=== PATIENT | female | born 1950 | race Caucasian/White ===

== ENCOUNTER 2020-02-07 16:51 | Inpatient (IN) | payer MEDICARE ==
[~2020-02-07] VITALS: Ht 170.2 cm; Wt 104.8 kg
[~2020-02-07 16:51] MED LIST: CALCIT950 PO; Dialyvite 5000 T5 MG PO; ENOX40I SC; FERR325 PO; GLUC500 PO; HYDMOR2 PO; LEVO750 PO; LISI20 PO; NEPHROCAPS QT1 EACH PO; OSTERA TABLET1 EACH PO; OXYACE5T PO; SIMV10 PO; TOPI25 PO; [UNRECOGNIZED DRUG - OTHER] PO
[2020-02-07] MEDS ORDERED: Ventolin/Prove6.7 GM INH (17:02)
[2020-02-07] MEDS ORDERED: CODEINE-GUAIFE120 ML PO (17:02)
[2020-02-07 17:53] LABS: BASOPHILS ABSOLUTE AUTO 0.06 K/mm3 (0.00-0.23); BASOPHILS PERCENT AUTO 1 % (0-2); EOSINOPHILS ABSOLUTE AUTO 0.15 K/mm3 (0.00-0.68); EOSINOPHILS PERCENT AUTO 1 % (0-6); Hematocrit 34.9 % (33.0-51.0); Hemoglobin 11.3 g/dL (11.5-16.0); IMMATURE GRAN ABSOLUTE AUTO 0.04 K/mm3 (0.00-0.10); IMMATURE GRAN PERCENT AUTO 0 % (0-1); LYMPHOCYTES ABSOLUTE AUTO 1.09 K/mm3 (0.84-5.20); LYMPHOCYTES PERCENT AUTO 9 % (21-46); MONOCYTES PERCENT AUTO 10 % (4-13); Mean Corpuscular HGB 29.7 pg (26.0-34.0); Mean Corpuscular HGB Conc 32.4 g/dL (31.5-36.5); Mean Corpuscular Volume 92 fL (80-100); Mean Platelet Volume 9.3 fL (9.1-12.4); NEUTROPHILS ABSOLUTE AUTO 9.09 K/mm3 (1.96-9.15); NEUTROPHILS PERCENT AUTO 78 % (41-73); Platelet Count 451 K/mm3 (150-400); RDW Coefficient Variation 12.7 % (11.7-14.2); RDW Standard Deviation 42.9 fL (35.1-46.3); Red Blood Cell Count 3.81 M/mm3 (3.80-5.20); White Blood Cell Count 11.63 K/mm3 (4.00-11.30)
[2020-02-07 18:18] LABS: Anion Gap 4 mmol/L (6-16); Blood Urea Nitrogen 17 mg/dL (8-24); Bun/Creatinine Ratio 30.5 (12.0-20.0); CO2, Blood 28 mmol/L (21-32); Calcium, Blood 9.3 mg/dL (8.5-10.1); Chloride, Blood 106 mmol/L (98-108); Creatinine, Blood 0.56 mg/dL (0.40-1.00); Glomerular Filtration Rate >60 (60-); Glucose, Blood 123 mg/dL (70-99); Potassium, Blood 4.1 mmol/L (3.5-5.5); Sodium, Blood 138 mmol/L (136-145); Troponin I <0.015 ng/mL (0.000-0.040)
--- NOTE | 2020-02-08 | NUR ---
PATIENT IS A NEW ADMIT FROM THE ED. AXOX 4 AND SELF TRANSFER FROM [facility] TO BED. ON ROOM AIR. REPORTS CHEST/RIB/BACK PAIN FROM BREATHING EXERTION. PATIENT ORIENTED TO ROOM AND CALL LIGHT SYSTEM. TELEMETRY IN PLACE AND TECH REPORTS ST 103. LASIX 60 MG GIVEN PER EMAR. CALL LIGHT IN REACH. BED IN LOWEST POSITION. WILL CONTINUE TO MONITOR.
--- NOTE | 2020-02-08 00:04 | NUR ---
PATIENT REPORTS CHEST/RIB/BACK PAIN. HOSPITALIST DR BLAND NOTIFIED AND ORDERED IV FENTANYL 25 MCG Q4 PRN.
--- NOTE | 2020-02-08 01:56 | NUR ---
PCU MONITOR TOBI POLLACK REPORTS ST 118-122. PATIENT UP TO BATHROOM DURING EVENT ON LASIX. CALL LIGHT IN REACH.
[2020-02-08 02:23] LABS: Hematocrit 33.2 % (33.0-51.0); Hemoglobin 10.6 g/dL (11.5-16.0); Mean Corpuscular HGB 29.1 pg (26.0-34.0); Mean Corpuscular HGB Conc 31.9 g/dL (31.5-36.5); Mean Corpuscular Volume 91 fL (80-100); Mean Platelet Volume 9.3 fL (9.1-12.4); Platelet Count 426 K/mm3 (150-400); RDW Coefficient Variation 12.9 % (11.7-14.2); RDW Standard Deviation 42.5 fL (35.1-46.3); Red Blood Cell Count 3.64 M/mm3 (3.80-5.20); White Blood Cell Count 14.17 K/mm3 (4.00-11.30)
[2020-02-08 02:44] LABS: Alanine Aminotransfer (ALT/SGP 19 U/L (12-78); Albumin, Blood 2.9 g/dL (3.4-5.0); Albumin/Globulin Ratio 0.6 (0.8-1.8); Alk Phos 99 U/L (50-136); Anion Gap 7 mmol/L (6-16); Aspartate Aminotrans (AST/SGOT 16 U/L (12-37); Bilirubin, Total 0.4 mg/dL (0.1-1.0); Blood Urea Nitrogen 15 mg/dL (8-24); Bun/Creatinine Ratio 19.9 (12.0-20.0); CO2, Blood 28 mmol/L (21-32); CPK Creatine Kinase 18 U/L (26-193); Calcium, Blood 9.1 mg/dL (8.5-10.1); Chloride, Blood 102 mmol/L (98-108); Creatinine, Blood 0.75 mg/dL (0.40-1.00); Globulin, Blood 4.9 g/dL (2.2-4.0); Glomerular Filtration Rate >60 (60-); Glucose, Blood 137 mg/dL (70-99); Potassium, Blood 3.9 mmol/L (3.5-5.5); Sodium, Blood 137 mmol/L (136-145); Total Protein, Blood 7.8 g/dL (6.4-8.2); Troponin I <0.015 ng/mL (0.000-0.040)
--- NOTE | 2020-02-08 04:20 | NUR ---
SHIFT SUMMARY PATIENT HR RATE INCREASED TO ST 118-122 WHEN UP TO BR FROM ST 103 X ONE PER TELEMETRY. AXOX 4 AND SBA TO BR. IV LASIX GIVEN ON ADMIT. PIV REMAINS INTACT. REPORTED CHEST/RIB/BACK PAIN AND RECEIVED IV FENTANYL 25 MCG PER EMAR PRN. ON ROOM AIR. RT IN TO CHECK O2 STATS AND LUNG SOUNDS. NO BREATHING TX AT THIS TIME REPORTED. SOB W/EXERTION. VSS/AFEBRILE. COOPERATIVE WITH CARE. CALL LIGHT IN REACH. BED IN LOWEST POSITION. WILL CONTINUE TO MONITOR UNTIL DAY SHIFT NURSE ASSUMES CARE.
[2020-02-08 10:50] LABS: CPK Creatine Kinase 24 U/L (26-193); Troponin I <0.015 ng/mL (0.000-0.040)
--- NOTE | 2020-02-08 11:24 | NUR ---
ECHOCARDIOGRAM COMPLETED
--- NOTE | 2020-02-08 14:11 | NUR ---
IV LOCATED LAC
--- NOTE | 2020-02-08 20:23 | NUR ---
SUMMARY- PT ALERT AND ORIENTED. INDEPENDANT IN ROOM, GETS UP TO BATHROOM, CONTINENT OF B&B. LUNGS CLEAR WITH FAINT CRACKLES IN BASES. STATES SHE FEELS PAIN IN [place] WITH DEEP BREATHING. MEDICATED Q4 WITH FENTANY. NO LASIX GIVEN THIS AM BECAUSE FIRST DOSE WAS LAST NIGHT AND SCHEDULED NEXT 02/[address] DENG, IN CASE AN ADDITIONAL DOSE WANTED IN BETWEEN SCHEDULED. ALSO NOTIFIED DR THAT FENT IS SHORT LIVED FOR PAIN CONTROL AND PT STATES TYLENOL WONT HELP BUT REQ FOR AN INBETWEEN FOR PAIN CONTROL. REPORTED TO GERSON MELO RN.
--- NOTE | 2020-02-09 04:05 | NUR ---
SHIFT SUMMARY PATIENT HAD NO ACUTE CHANGES OBSERVED. AXOX 4 AND INDEPENDENT IN THE ROOM. PIV REMAINS INTACT. BUS BOY REPORTS ST 102. VSS/AFEBRILE. DENIES SOB AND N/V. REPORTED CHEST/RIB PAIN AND NORCO GIVEN PER EMAR. PATIENT ABLE TO GO BACK TO SLEEP WITH PAIN MANAGEMENT. COOPERATIVE WITH CARE. CALL LIGHT IN REACH. BED IN LOWEST POSITION. WILL CONTINUE TO MONITOR UNTIL DAY SHIFT NURSE ASSUMES CARE.
[2020-02-09 05:35] LABS: Albumin, Blood 2.6 g/dL (3.4-5.0); Anion Gap 6 mmol/L (6-16); Blood Urea Nitrogen 17 mg/dL (8-24); Bun/Creatinine Ratio 30.6 (12.0-20.0); CO2, Blood 26 mmol/L (21-32); Calcium, Blood 9.3 mg/dL (8.5-10.1); Chloride, Blood 106 mmol/L (98-108); Creatinine, Blood 0.56 mg/dL (0.40-1.00); Glomerular Filtration Rate >60 (60-); Glucose, Blood 102 mg/dL (70-99); Phosphorus, Blood 3.1 mg/dL (2.5-4.9); Potassium, Blood 3.9 mmol/L (3.5-5.5); Sodium, Blood 138 mmol/L (136-145)
--- NOTE | 2020-02-09 06:37 | NUR ---
TELEMETRY EVENT: SEVEN BEAT RUN OF V-TACH; 108.
--- NOTE | 2020-02-09 16:02 | NUR ---
SHIFT SUMMARY PT IS A/O X 4 AND C/O SOB WITH EXERTION BUT ON OBSERVATION HAS NO S/S OF SOB OR RESPIRATORY DISTRESS. PT DENIES CHEST PAIN. HER LUNGS ARE CLEAR AND DIM IN THE BASES. FOREST ECOLOGY PROFESSOR REPORTS SINUS RHYTHM. CARDIO CONSULT WAS CALLED IN TO BAGGING MACHINE OPERATOR. PT AMBULATES AROUND HER ROOM IND. WITH NO ISSUE. PT IS ABLE TO MAKE HER NEEDS KNOWN AND CALLS FOR HELP WHEN NEEDED. CALL LIGHT IS IN REACH.
--- NOTE | 2020-02-10 04:58 | NUR ---
SHIFT SUMMARY PATIENT HAD NO ACUTE CHANGES OBSERVED THIS SHIFT. AXO X 4 INDEPENDENT IN ROOM. ON ROOM AIR. PIV REMAINS INTACT. CRUSHER SCREEN REPAIRER REPORTS ST 102. REPORTED CHEST/RIB PAIN X TWO AND IV FENTANYL 25 MCG GIVEN PER EMAR. DENIES SOB AND N/V. COOPERATIVE WITH CARE. CALL LIGHT IN REACH. BED IN LOWEST POSITION. WILL CONTINUE TO MONITOR UNTIL DAY SHIFT NURSE ASSUMES CARE.
[2020-02-10] MEDS ORDERED: COLCHICINE0.6 MG PO (11:46)
[2020-02-10] MEDS ORDERED: FURO20 PO (11:46)
[2020-02-10] MEDS ORDERED: IBUP400 PO (11:47)
[2020-02-10] MEDS ORDERED: METO25ER PO (11:49)
--- NOTE | 2020-02-10 12:17 | NUR ---
PT DCD HOME WITH . MED REC FAXED TO [facility] PER PT REQUEST. ALL INSRUCTIONS AND FOLLOW UPS REVIEWED WITH PT WHO VERBALIZED AN UNDERSTANDING. IV REMOVED WITH NO ISSUE. ALL PERSONAL BELONGS SENT WITH PT. PT ASSISTED DOWNSTAIRS WHERE HER IS PICKING HER UP. PT STABLE UPON DC.
== END 2020-02-10 12:17 | disposition home or self-care (01) | DRG 291 ==
LOC: ER 16:51 → MEDS 16:52 → ER 23:00 → MEDS 23:00 → ENPENDDIS 02-10 10:31 → MEDS 02-10 12:17
PROVIDERS: Internal Medicine; Physician Assistant; ADMIT Internal Medicine
DX: I11.0 Hypertensive heart disease with heart failure (principal); I50.31 Acute diastolic (congestive) heart failure; I31.9 Disease of pericardium, unspecified; I47.2 Ventricular tachycardia; I34.0 Nonrheumatic mitral (valve) insufficiency; E66.01 Morbid (severe) obesity due to excess calories; Z68.36 Body mass index [BMI] 36.0-36.9, adult; Z98.84 Bariatric surgery status; Z87.891 Personal history of nicotine dependence
CPT/HCPCS: 36415; 71046; 80048; 80053; 80069; 82550; 83880; 84145; 84484; 85025; 85027; 93005; 93010; 93306; 96372; 96374; 96375; 96376; 99285-25; A9270-GY; G0378; J1650; J1940; J3010

== ENCOUNTER → 2022-08-04 | Outpatient (CLI) | payer MEDICARE ==
[~2022-08-04] MED LIST changes: +CODEINE-GUAIFE120 ML PO; +COLCHICINE0.6 MG PO; +FURO20 PO; +IBUP400 PO; +METO25ER PO; +Ventolin/Prove6.7 GM INH
== END | disposition home or self-care (01) ==
LOC: LAB SHORT 09:00 → LAB 09:00
DX: R19.7 Diarrhea, unspecified (principal)
CPT/HCPCS: 87015; 87045; 87046; 87205; 87899

== ENCOUNTER → 2023-03-22 | Outpatient (CLI) | payer MEDICARE ==
[~2023-03-22] MED LIST changes: +Robaxin750 MG PO
[2023-03-22 15:38] LABS: BASOPHILS ABSOLUTE AUTO 0.06 K/mm3 (0.00-0.23); BASOPHILS PERCENT AUTO 1 % (0-2); EOSINOPHILS ABSOLUTE AUTO 0.12 K/mm3 (0.00-0.68); EOSINOPHILS PERCENT AUTO 2 % (0-6); Hematocrit 39.7 % (33.0-51.0); Hemoglobin 13.2 g/dL (11.5-16.0); IMMATURE GRAN ABSOLUTE AUTO 0.01 K/mm3 (0.00-0.10); IMMATURE GRAN PERCENT AUTO 0 % (0-1); LYMPHOCYTES ABSOLUTE AUTO 1.12 K/mm3 (0.84-5.20); LYMPHOCYTES PERCENT AUTO 17 % (21-46); MONOCYTES ABSOLUTE AUTO 0.44 K/mm3 (0.16-1.47); MONOCYTES PERCENT AUTO 7 % (4-13); Mean Corpuscular HGB 30.6 pg (26.0-34.0); Mean Corpuscular HGB Conc 33.2 g/dL (31.5-36.5); Mean Corpuscular Volume 92 fL (80-100); Mean Platelet Volume 10.8 fL (9.1-12.4); NEUTROPHILS ABSOLUTE AUTO 4.87 K/mm3 (1.96-9.15); NEUTROPHILS PERCENT AUTO 74 % (41-73); Platelet Count 256 K/mm3 (150-400); RDW Coefficient Variation 13.4 % (11.7-14.2); RDW Standard Deviation 45.8 fL (35.1-46.3); Red Blood Cell Count 4.31 M/mm3 (3.80-5.20); White Blood Cell Count 6.62 K/mm3 (4.00-11.30)
[2023-03-22 15:47] LABS: Alanine Aminotransfer (ALT/SGP 21 U/L (12-78); Albumin, Blood 3.7 g/dL (3.4-5.0); Albumin/Globulin Ratio 1.1 (0.8-1.8); Alk Phos 72 U/L (50-136); Anion Gap 2 mmol/L (6-16); Aspartate Aminotrans (AST/SGOT 14 U/L (12-37); Bilirubin, Total 0.3 mg/dL (0.1-1.0); Blood Urea Nitrogen 19 mg/dL (8-24); Bun/Creatinine Ratio 24.4 (12.0-20.0); CHOL/HDL RATIO 2.9; CO2, Blood 28 mmol/L (21-32); Calcium, Blood 9.5 mg/dL (8.5-10.1); Chloride, Blood 109 mmol/L (98-108); Cholesterol 214 mg/dL (50-200); Creatinine, Blood 0.78 mg/dL (0.40-1.00); Globulin, Blood 3.4 g/dL (2.2-4.0); Glomerular Filtration Rate 80 (60-); Glucose, Blood 101 mg/dL (70-99); HDL Cholesterol 74 mg/dL (>39); LDL/HDL RATIO 1.6; Low Density Lipoprotein Chol 117 mg/dL (0-110); Potassium, Blood 4.2 mmol/L (3.5-5.5); Sodium, Blood 139 mmol/L (136-145); Total Protein, Blood 7.1 g/dL (6.4-8.2); Triglycerides 114 mg/dL (30-160); Very Low Density Lipoprot Chol 23 mg/dL (6-32)
== END | disposition home or self-care (01) ==
LOC: LAB 10:26 → LAB SHORT 10:26
PROVIDERS: Nurse Practitioner Family
DX: I11.0 Hypertensive heart disease with heart failure (principal); I50.32 Chronic diastolic (congestive) heart failure; R73.9 Hyperglycemia, unspecified
CPT/HCPCS: 80053; 80061; 83036; 85025

== ENCOUNTER 2024-01-04 11:29 | Emergency (ER) | payer OTHER, BC ==
[~2024-01-04] VITALS: Ht 170.2 cm; Wt 117.9 kg
[2024-01-04 11:43] VITALS: BP 153/91
== END 2024-01-04 12:54 | disposition home or self-care (01) ==
LOC: ER 11:29
DX: S80.11XA Contusion of right lower leg, initial encounter (principal); Z87.891 Personal history of nicotine dependence; M19.90 Unspecified osteoarthritis, unspecified site; E66.01 Morbid (severe) obesity due to excess calories; Z68.41 Body mass index [BMI] 40.0-44.9, adult; Z79.899 Other long term (current) drug therapy; W01.0XXA Fall on same level from slipping, tripping and stumbling without subsequent striking against object, initial encounter; Y92.009 Unspecified place in unspecified non-institutional (private) residence as the place of occurrence of the external cause
CPT/HCPCS: 73562-RT; 93971; 99284-25

== ENCOUNTER 2024-03-19 09:15 | Day surgery (SDC) | payer BC ==
[~2024-03-19] VITALS: Ht 170.2 cm; Wt 120.4 kg
[~2024-03-19 09:15] MED LIST changes: +Lactated Ringer's 1,000 ML IV ONE
[2024-03-19] MEDS ORDERED: Lactated Ringer's 1,000 ML IV ONE (09:37)
[2024-03-19] MEDS ORDERED: POTA8 (10:01)
[2024-03-19] MEDS ORDERED: ERGO50000 (10:02)
[2024-03-19] MEDS ORDERED: ESOM20 (10:02)
[2024-03-19] MEDS ORDERED: IRON18 MG (10:02)
[2024-03-19] MEDS ORDERED: propofoL 50 ML IV ONE (11:15)
[2024-03-19 12:03] VITALS: BP 146/59
== END 2024-03-19 12:05 | disposition home or self-care (01) ==
LOC: ORSCSDS 09:15
PROVIDERS: Internal Medicine Gastroenterology
PROC: 0DJD8ZZ Inspection of Lower Intestinal Tract, Via Natural or Artificial Opening Endoscopic (ICD-10-PCS; principal; 2024-03-19 10:30)
DX: Z12.11 Encounter for screening for malignant neoplasm of colon (principal); R19.5 Other fecal abnormalities; K57.30 Diverticulosis of large intestine without perforation or abscess without bleeding; K64.8 Other hemorrhoids; I35.1 Nonrheumatic aortic (valve) insufficiency; I10 Essential (primary) hypertension; E78.5 Hyperlipidemia, unspecified; Z98.84 Bariatric surgery status; Z87.891 Personal history of nicotine dependence; K21.9 Gastro-esophageal reflux disease without esophagitis; R73.03 Prediabetes; M19.90 Unspecified osteoarthritis, unspecified site; E66.9 Obesity, unspecified; Z68.41 Body mass index [BMI] 40.0-44.9, adult; Z79.899 Other long term (current) drug therapy
CPT/HCPCS: 82947; J2704; J7120